=== PATIENT | male | born 1990 | race Caucasian/White ===

== ENCOUNTER 2020-09-15 04:52 | Emergency (ER) | payer SELFPAY | END 2020-09-15 08:55 | disposition home or self-care (01) | LOC: ER1 04:52 | DX: S60.221A Contusion of right hand, initial encounter (principal); E78.00 Pure hypercholesterolemia, unspecified; F17.210 Nicotine dependence, cigarettes, uncomplicated; W22.8XXA Striking against or struck by other objects, initial encounter | CPT/HCPCS: 73130; 99283 ==